=== PATIENT | male | born 1965 | race Caucasian/White ===

== ENCOUNTER 2020-08-05 01:52 | Outpatient (CLI) | payer OTHER, SELFPAY ==
[2020-08-05 19:52] LABS: SARS-CoV-2 RNA PCR Negative
== END 2020-08-05 01:53 | disposition home or self-care (01) ==
LOC: ANHCOVIDDT 01:53
PROVIDERS: PCP Internal Medicine; Visit Provider Internal Medicine Gastroenterology
DX: Z01.812 Encounter for preprocedural laboratory examination (principal); Z20.828 Contact with and (suspected) exposure to other viral communicable diseases
CPT/HCPCS: 87635; C9803; U0003

== ENCOUNTER 2020-08-08 01:04 | Day surgery (SDC) | payer OTHER, SELFPAY ==
[2020-08-03 08:38] VITALS: BMI 44.6
[2020-08-08] MEDS: LACTATED RINGERS 1,000 ML 150 ML IV CONT (07:21)
[2020-08-08 07:25] VITALS: BP 165/86; PULSE 90; RESP 16; TEMP 36.9; O2SAT 100; BMI 45.6
--- NOTE | 2020-08-08 07:53 | WPDGICN ---
Assessment and Plan Assessment and plan (1) History of colon polyps: Code(s): Z86.010 - Personal history of colonic polyps Status: Acute Assessment and Plan: Patient has a history of adenomatous colon polyps in the past. Most recently 2014. Plan is for surveillance colonoscopies at this time. GI Consult Note Consult date/time: 08/08/20 07:53 HPI: Fabrizio Kebede III is a 55 year old male Seen in evaluation at the request of Dr. Presley Witt. Patient presents for surveillance colonoscopy. Patient has had colon polyps on several previous colonoscopies. In 2014 had a tubular adenoma removed from the colon. Patient's current weight appetite bowel movements are normal. Patient denies abdominal pain. He has had no bleeding. His weight has remained stable. Review of Systems Review of Systems: All systems reviewed & are unremarkable except as noted in HPI and below PMFSH Social History Social History Smoking packs per day: 1 Smoking cigarettes per day: 20.0 Years smoked: 5 Smoking pack-years: 5.00 Smoking status: Former smoker Tobacco type: cigarettes Alcohol intake: current Drinks per week: 1 Substance use: never Substance use type: does not use Living arrangements: with family Spiritual care concerns: No Meds Home Medications and Allergies Home Medications Medication Instructions Recorded Confirmed Type gabapentin 300 mg PO BID 08/03/20 08/08/20 History lisinopril 5 mg PO DAILY 08/03/20 08/08/20 History meclizine 25 mg PO DAILY 08/03/20 08/08/20 History Allergies Allergy/AdvReac Type Severity Reaction Status Date / Time Penicillins Allergy Severe anaphylactic Verified 08/08/20 07:05 reaction Vital Signs Vital Signs - 24 hr 08/08/20 07:25 Temperature 98.4 F Pulse Rate 90 Respiratory Rate 16 Blood Pressure 165/86 H Pulse Oximetry 100 Exam Narrative: Exam Narrative: Physical exam reveals patient to be alert. He is somewhat obese. Vital signs are stable. HEENT exam unremarkable. Lungs are clear to auscultation and percussion. Heart is without murmur or extra sounds. Abdominal exam bowel sounds are present soft nontender with no hepatosplenomegaly. Digital external rectal exam is normal.
--- NOTE | 2020-08-08 08:18 | P.PNAN_ITS ---
Anes - Initial Pre Proc Eval Procedure: Operation Date: 08/08/20 08:30 Proposed Procedures p Screening Colonoscopy - Hugo Rodriges MD Date/Time: 08/08/20 08:18 Surgeon: Hugo Rodriges MD Pre Op Diagnosis: Neoplasm Screening, Hx Of Colon Polyps Patient Data Age: 55 Gender: M Height: 5 ft 7 in Weight: 132.2 kg Last Vital Signs Temp 98.4 F 08/08/20 07:25 Pulse 90 08/08/20 07:25 Resp 16 08/08/20 07:25 BP 165/86 H 08/08/20 07:25 Pulse Ox 100 08/08/20 07:25 Allergies Allergy/AdvReac Type Severity Reaction Status Date / Time Penicillins Allergy Severe anaphylactic Verified 08/08/20 07:05 reaction Home Medications Medication Instructions Recorded Confirmed Type gabapentin 300 mg PO BID 08/03/20 08/08/20 History lisinopril 5 mg PO DAILY 08/03/20 08/08/20 History meclizine 25 mg PO DAILY 08/03/20 08/08/20 History Patient hx anesthesia problems: none Family hx anesthesia problems: none [facility] Past Medical History Medical History (Updated 08/08/20 @ 08:18 by Santi Medellin MD) Hypertension JAYY (obstructive sleep apnea) Social History Social History Smoking packs per day: 1 Smoking cigarettes per day: 20.0 Years smoked: 5 Smoking pack-years: 5.00 Smoking status: Former smoker Tobacco type: cigarettes Alcohol intake: current Drinks per week: 1 Substance use: never Substance use type: does not use Living arrangements: with family Spiritual care concerns: No Anes - Eval Final PreProcedure Day of Procedure 08/08/20 08:18 Patient weight: morbidly obese Heart: regular rate and rhythm Lungs: clear to auscultation Airway: Mallampati scale class III Neurological: alert and oriented Last oral intake: >/= 8 hours ASA classification: III Emergent: no Anesthetic plan: proceed Anesthesia type and monitoring: general GIVS and standard monitoring Informed Consent: The patient's anesthetic plan and its attendant risks and benefits were discussed with the patient/family/POA. Questions were solicited and answers provided to the satisfaction of the patient/family/POA.
[2020-08-08 08:50] VITALS: BP 123/80; PULSE 79; RESP 16; O2SAT 97
[2020-08-08 09:00] VITALS: BP 128/78; PULSE 78; RESP 18; O2SAT 96
[2020-08-08 09:10] VITALS: BP 132/84; PULSE 66; RESP 22; O2SAT 98
== END 2020-08-08 09:25 | disposition home or self-care (01) ==
PROVIDERS: PCP Internal Medicine; Visit Provider Internal Medicine Gastroenterology
PROC: 0DJD8ZZ Inspection of Lower Intestinal Tract, Via Natural or Artificial Opening Endoscopic (ICD-10-PCS; CPT 45378; principal; 2020-08-08 08:30)
DX: Z12.11 Encounter for screening for malignant neoplasm of colon (principal); K64.8 Other hemorrhoids; Z86.010 Personal history of colon polyps; I10 Essential (primary) hypertension; G47.33 Obstructive sleep apnea (adult) (pediatric); Z87.891 Personal history of nicotine dependence; E66.01 Morbid (severe) obesity due to excess calories; Z68.42 Body mass index [BMI] 45.0-49.9, adult
CPT/HCPCS: 45378; J2704; J7120

== ENCOUNTER 2021-05-17 15:32 | Emergency (ER) | payer OTHER, SELFPAY ==
--- NOTE | ~2021-05-17 | CT_ITS ---
EXAMINATION: CTA chest PE protocol DATE: 05/17/2021 23:49 INDICATION: Chest pain. Elevated d-dimer. TECHNIQUE: Computed tomography angiography (CTA) of the chest was performed with 100 mL Omnipaque-350 intravenous contrast timed to evaluate the pulmonary arteries. Coronal maximum intensity projection 3D-reconstructions were created by the technologist. Automated exposure control and iterative reconst ruction technique were employed. Exam dose: 1069.21 mGy-cm total exam DLP. COMPARISON: 05/17/2021 2 view chest FINDINGS: There is diagnostic contrast enhancement of the pulmonary arteries and no evidence of pulmo nary embolism. No thoracic aortic aneurysm or dissection. Normal heart size. Coronary artery calcification. No hilar or mediastinal mass lesion or lymphadenopathy. No pulmonary infiltrate or consolidation or suspicious pulmonary mass lesion. Normal morphology of the adrenal glands. Old healed right fifth through seventh rib fractures deformities. Diffuse idiopathic skeletal hyperostosis of the thoracic spine. No suspicious osteolytic or osteoblastic lesions. IMPRESSION: No evidence of pulmonary embolism Reviewed, dictated and finalized at [facility]. Reviewed, dictated and finalized at [facility].
--- NOTE | ~2021-05-17 | XR_ITS ---
XR chest 2V DATE: 05/17/2021 22:43 INDICATION: Heart fluttering. Hypertension. Kidney pain. TECHNIQUE: PA and lateral views COMPARISON: None FINDINGS: Heart size is normal. Is mild aortic unfolding and calcification. No hilar or mediastinal e nlargement. No pulmonary infiltrate or consolidation, pleural effusion or pulmonary vascular congestion or pneumo thorax. Osteopenia. Old lateral right sixth and seventh rib fractures. [place] device overlying left humeral h ead. IMPRESSION: No active cardiopulmonary disease Reviewed, dictated and finalized at [facility].
[2021-05-17 16:45] VITALS: BP 126/97; PULSE 66; RESP 14; TEMP 37.5; O2SAT 97
--- NOTE | 2021-05-17 16:48 | ECG_ITS ---
Measurements Intervals [place] Rate: 67 P: 29 WV: 157 QRS: 101 QRSD: 92 T: 46 QT: 379 QTc: 400 Interpretive Statements SINUS RHYTHM RIGHT AXIS DEVIATION DELAYED PRECORDIAL R/S TRANSITION BORDERLINE ECG Electronically Signed On 05-17-2021 18:52:34 CDT by Fareed Coleman D.O.
[2021-05-17 20:46] VITALS: BP 139/85; PULSE 65; RESP 20; TEMP 36.7; O2SAT 98
--- NOTE | 2021-05-17 21:26 | ED.GENADULT ---
HPI - General Adult General Chief complaint: Unspecified Stated complaint: MED CHANGE REACTION Time Seen by Provider: 05/17/21 20:57 History of Present Illness HPI narrative: Patient presents with concern for medication reaction. Patient reports he was recently switched from lisinopril to metoprolol. Since starting his metoprolol he has had increased fatigue reports kidney pain and headaches. Symptoms been present since starting his metoprolol. His dose was recently increased to 2 pills a day and his symptoms were worsened after increasing his dose. He also notes lightheadedness he does report intermittent chest pain and is being evaluated by cardiology denies any fevers, cough, shortness of breath. Related Data Allergies Allergy/AdvReac Type Severity Reaction Status Date / Time Penicillins Allergy Severe anaphylactic Verified 05/02/21 15:31 reaction Review of Systems Review of Systems: CONSTITUTIONAL: Denies fever, chills, or sweats. EYES: Denies visual changes, redness, or discharge. ENT: Denies rhinorrhea, congestion, sore throat, or otalgia. CARDIOVASCULAR: Denies chest pain, palpitations, or edema. RESPIRATORY: Denies cough or dyspnea. GASTROINTESTINAL: Denies abdominal pain, nausea, vomiting, or diarrhea. GENITOURINARY: Denies dysuria or hematuria. SKIN: Denies rash or itching. MUSCULOSKELETAL: Denies back pain, joint pain, or myalgia. NEUROLOGIC: Denies headache, numbness, dizziness, or weakness. PSYCHIATRIC: Denies anxiety or depression. All systems reviewed & are unremarkable except as noted in HPI and below PMFSH Past Medical History Medical History Hypertension JAYY (obstructive sleep apnea) Social History Social History Smoking packs per day: 1 Smoking cigarettes per day: 20.0 Years smoked: 5 Smoking pack-years: 5.00 Smoking status: Former smoker Tobacco type: cigarettes Alcohol intake: current Drinks per week: 1 Substance use: never Substance use type: does not use Gender identity (if verbalized by the patient): Male Spiritual care concerns: No Exam Narrative: GENERAL: Well-appearing, well-nourished, and in no acute distress. HEAD: Normocephalic, atraumatic. EYES: PERRLA and EOMI. ENT: Nares clear, no rhinorrhea or epistaxis. Mucous membranes moist. NECK: Supple. No masses. No JVD CHEST: Clear to auscultation. No respiratory distress. No wheezes rales or rhonchi HEART: Regular rate and rhythm. No murmur heard. Normal peripheral pulses. ABDOMEN: Soft, nontender, nondistended, normal active bowel sounds. EXTREMITIES: Normal range of motion. No edema. SKIN: Warm, dry, no rash. NEURO: No focal deficits. Alert and oriented x3. PSYCH: Normal mood and affect. Course Reevaluation(s) Reevaluation #1: Patient resting comfortably results reviewed with patient. Patient comfortable with outpatient plan. Date: 05/18/21 Time: 00:23 Vital Signs Vital signs: Vital Signs Temperature 37.5 C 05/17/21 16:45 Pulse Rate 66 05/17/21 16:45 Respiratory Rate 14 05/17/21 16:45 Blood Pressure 126/97 H 05/17/21 16:45 Pulse Oximetry 97 05/17/21 16:45 Temperature 36.7 C 05/17/21 20:46 Pulse Rate 67 05/18/21 00:42 Respiratory Rate 22 H 05/18/21 00:42 Blood Pressure 104/55 L 05/18/21 00:42 Pulse Oximetry 98 05/18/21 00:42 Medical Decision Making MDM Narrative Medical decision making narrative: H&P as above, vss, pt looks clinically well, exam reassuring. Prior notes were reviewed patient had a Holter monitor which showed intermittent A. fib. Labs ordered to include dimer, banner labs were clinically unremarkable CT of the chest ordered and was clinically unremarkable additional labs/img considered, symptomatic relief available as needed, on reevaluation pt continues to looks clinically well. Fatigue headache and weakness may be related to patie
[2021-05-17 22:45] LABS: Basophils Absolute Auto 0.1 K/mm3 (0.0-0.1); Eosinophils Absolute Auto 0.4 K/mm3 (0-0.3); Eosinophils Percent Auto 3.5 % (0-4.4); Hematocrit 47.5 % (42.0-52.0); Hemoglobin 15.4 g/dL (14.0-18.0); Immature Granulocyte Absolute 0.14 K/mm3 (0.00-0.031); Immature Granulocyte Percent A 1.2 % (0-0.5); Lymphocytes Absolute Auto 3.07 K/mm3 (0.9-3.2); Lymphocytes Percent Auto 26.5 % (18.3-44.2); Mean Corpuscular HGB Conc 32.4 g/dl (32-36); Mean Corpuscular Hemoglobin 30.2 pg (26-34); Mean Corpuscular Volume 93.1 fl (80-100); Mean Platelet Volume 11.3 fl (7.4-10.4); Monocytes Absolute Auto 1.2 K/mm3 (0.1-0.6); Monocytes Percent Auto 10.4 % (2.6-8.5); Neutrophils Absolute Auto 6.7 K/mm3 (1.3-6.7); Neutrophils Percent Auto 57.4 % (45.5-73.1); Platelet Count Result 206 k/mm3 (150-375); Red Cell Distribution Width 13.4 % (11.5-14.5); White Blood Count 11.6 K/mm3 (4.5-10.0)
[2021-05-17 23:03] LABS: Alanine Aminotransferase 47 U/L (4-50); Albumin Level 4.2 g/dL (3.5-5.1); Alkaline Phosphatase 58 U/L (38-126); Anion Gap 7 mmol/L (8-16); Aspartate Amino Transferase 41 U/L (17-59); Bilirubin,Total 0.6 mg/dL (0.2-1.3); Blood Urea Nitrogen 19 mg/dL (9-20); Carbon Dioxide 28 mmol/L (22-30); Chloride 99 mmol/L (98-107); Estimated CRCL calculation 84 ml/min; Estimated Glomerular Filt Rate > 60; Glucose 104 mg/dL (65-110); Potassium 3.9 mmol/L (3.4-5.0); Sodium 134 mmol/L (137-145)
[2021-05-17 23:10] LABS: D Dimer 0.63 ug/mL (<0.48)
[2021-05-17 23:14] LABS: Troponin I < 0.012 ng/mL (0.000-0.034)
[2021-05-17 23:17] VITALS: BP 154/90; PULSE 63; RESP 18; O2SAT 98
--- NOTE | 2021-05-17 23:18 | PC.NURSE ---
Assumed care of pt at this time, pt resting w/ lights dimmed - alert to verbal stimuli. VSS, pt on tele monitor. Discussed POC.
[2021-05-18 00:42] VITALS: BP 104/55; PULSE 67; RESP 22; O2SAT 98
[2021-05-18] MEDS: ACETAMINOPHEN 500 MG TABLET 1000 MG PO (00:42)
== END 2021-05-18 00:43 | disposition home or self-care (01) ==
PROVIDERS: Emergency Provider Emergency Medicine; PCP Internal Medicine
DX: R42 Dizziness and giddiness (principal); R07.9 Chest pain, unspecified; I10 Essential (primary) hypertension; G47.33 Obstructive sleep apnea (adult) (pediatric); Z87.891 Personal history of nicotine dependence; R94.31 Abnormal electrocardiogram [ECG] [EKG]
CPT/HCPCS: 36415; 71046; 71275; 80053; 84484; 85025; 85380; 93005; 99284; A9270; Q9967

== ENCOUNTER 2021-06-19 13:11 | Outpatient (CLI) | payer OTHER, SELFPAY ==
--- NOTE | 2021-06-19 13:31 | ECHO_ITS ---
Patient Info Name: Fabrizio Kebede Age: 56 years : 1965 Gender: Male Ht: 67 in Wt: 285 lbs BSA: 2.54 m2 HR: 71 bpm BP: 137 / 68 mmHg Technical Quality: Good Exam Date: 06/19/2021 1:47 PM Exam Location: [facility] Patient Status: Outpatient Admit Date: 06/19/2021 Staff Ordering Physician: Fareed Coleman DO Residential Finish Carpenter: Larissa Jiménez RDCS Attending Provider: Fareed Coleman DO Referring Physician: Jared HENDERSON; Exam Type: CA echo doppler color flow Study Info Indications - ATRIAL FIBRILLATION Complete two-dimensional, color flow and Doppler transthoracic echocardiogram is performed. Summary 1. Complete two-dimensional, color flow and Doppler transthoracic echocardiogram is performed. 2. Left ventricular chamber dimension is normal. 3. Left ventricular systolic function is normal, estimated at 60-65%. 4. The left ventricular diastolic function is normal. 5. E/e' 9 is minimally elevated. 6. There is trace tricuspid valve regurgitation. 7. No pulmonary hypertension, estimated pulmonary arterial systolic pressure is 28 mmHg. Left Ventricle E/e' 9 is minimally elevated. Left ventricular chamber dimension is normal. Left ventricular systolic function is normal, estimated at 60-65%. The left ventricular diastolic function is normal. Right Ventricle Right ventricular chamber dimension is normal. Right ventricular systolic function is normal. Left Atria Left atrial chamber dimension is normal. Right Atria Right atrial chamber dimension is normal. Aortic Valve The aortic valve is trileaflet. There is no aortic valve stenosis. There is no aortic valve regurgitation. Pulmonic Valve There is no pulmonic regurgitation. Mitral Valve There is no mitral valve stenosis. There is no mitral valve regurgitation. Tricuspid Valve There is trace tricuspid valve regurgitation. No pulmonary hypertension, estimated pulmonary arterial systolic pressure is 28 mmHg. Pericardium/Pleural There is no pericardial effusion. Inferior Vena Cava Normal inferior vena cava with >50% collapse upon inspiration consistent with normal right atrial pressure, 5 mmHg. Aorta The aortic root size at the sinus of Valsalva is normal. Left Ventricular Outflow Tract Name Value Normal LVOT 2D LVOT Diameter 2.0 cm LVOT Doppler LVOT Peak Gradient 6 mmHg LVOT Mean Gradient 4 mmHg LVOT VTI 23 cm LVOT VTI/AV VTI Ratio 0.8 LVOT Stroke Volume 72 ml LVOT CO 17.5 l/min LVOT CI 6.9 l/min/m2 Pulmonic Valve Name Value Normal PV Doppler PV Peak Gradient 5 mmHg Mitral Valve
== END 2021-06-19 13:12 | disposition home or self-care (01) ==
PROVIDERS: PCP Internal Medicine; Visit Provider Internal Medicine Cardiovascular Disease
DX: I48.91 Unspecified atrial fibrillation (principal)
CPT/HCPCS: 93306

== ENCOUNTER 2024-07-25 12:06 | Outpatient (CLI) | payer OTHER, SELFPAY ==
--- NOTE | ~2024-07-25 | XR_ITS ---
XR_[id number]_CR DATE: 07/25/2024 12:37 INDICATION: Neck pain TECHNIQUE: Standing AP, open-mouth and lateral views COMPARISON: 07/25/2024 thoracic spine FINDINGS: C1 and C2 are normally aligned and the odontoid process is intact. No fracture or dislocation or lock ed facet or prevertebral soft tissue swelling is detected. There is slight anterolisthesis at C4-5. Cervical spaces are relatively well preserved. Prominent anterior spurring at the mid and lower cervi [place]weta spine. IMPRESSION: Prominent anterior spurring of the mid and lower cervical spine Minimal anterolisthesis at C4-5 Reviewed, dictated and finalized at [facility]. Reviewed, dictated and finalized at location [facility].
--- NOTE | ~2024-07-25 | XR_ITS ---
XR lumbar spine 2-3V DATE: 07/25/2024 12:38 INDICATION: Low back pain TECHNIQUE: Standing AP, lateral and coned lateral lumbosacral views COMPARISON: None FINDINGS: The lumbar vertebrae are normally aligned. No fracture or bone destruction or spondylolisth esis. Included lower thoracic and lumbar pedicles are intact. Lumbar and lumbosacral interspaces appear relatively well preserved. There is mild degenerative spurr ing throughout the lumbar spine. The sacroiliac joints appear normally aligned. IMPRESSION: Mild degenerative spurring Reviewed, dictated and finalized at location [facility]. IMPRESSION: Mild degenerative spurring
--- NOTE | ~2024-07-25 | XR_ITS ---
XR thoracic spine 2V DATE: 07/25/2024 12:38 INDICATION: Mid back pain TECHNIQUE: AP, lateral, swimmer views COMPARISON: None FINDINGS: Normal alignment of the thoracic spine. There is moderate degenerative spurring, particular ly in the mid and lower thoracic spine. No fracture or dislocation or bone destruction. The thoracic pedicles are intact. No paraspinal soft tissue thickening. IMPRESSION: Moderate degenerative spurring Reviewed, dictated and finalized at location [facility].
--- NOTE | ~2024-07-25 | XR_ITS ---
XR pelvis 1-2V DATE: 07/25/2024 12:38 INDICATION: Bilateral sacroiliac pain TECHNIQUE: AP pelvis COMPARISON: None FINDINGS: Normal alignment at the pubic symphysis and sacroiliac joints. No pelvic fracture or bone destruction. Bilateral prominent vas deferens calcifications, indicating probable diabetes. IMPRESSION: Bilateral prominent vas deferens calcifications, indicating probable diabetes No significant abnormality of the sacroiliac joints Reviewed, dictated and finalized at location [facility]. IMPRESSION: Bilateral prominent vas deferens calcifications, indicating probabl e diabetes No significant abnormality of the sacroiliac joints
== END 2024-07-25 12:07 | disposition home or self-care (01) ==
PROVIDERS: PCP Chiropractor; Visit Provider Chiropractor
DX: M46.02 Spinal enthesopathy, cervical region (principal); M46.06 Spinal enthesopathy, lumbar region; M46.04 Spinal enthesopathy, thoracic region; M53.3 Sacrococcygeal disorders, not elsewhere classified
CPT/HCPCS: 72040; 72070; 72100; 72170